=== PATIENT | male | born 1950 | race Caucasian/White ===

== ENCOUNTER 2023-02-15 12:08 | Outpatient (REF) | payer MEDICARE, SELFPAY ==
--- NOTE | 2023-02-15 10:30 | SKI_PTH ---
PATIENT: Ramin Beasley LOC: [facility] U#:[id number] AGE/SX: 72/M ROOM: RE02/15/[address]: Kam Nolen MD : 1950 BED: DIS: 02/15/2023 SPEC #: [id number] RECD: 02/15/23 16:34 STATUS: KAM REQ #: [id number] PRISCILLA: 02/15/23 10:[address]: Kam Nolen DEPT: Surgical Specimen RECD BY: Natalia Boswell ENTERED: 02/15/23 16:34 SP TYPE: REZA GRUBBS DR: Rashaun Renteria Tissues: 1 - SKIN BIOPSY(SHAVE/PUNCH) Procedures: SKIN LEVEL 4 Comments: [id number]
== END 2023-02-15 12:09 | disposition home or self-care (01) ==
LOC: LBN 12:08
PROVIDERS: PCP Nurse Practitioner Family; Visit Provider Otolaryngology
DX: L82.1 Other seborrheic keratosis (principal)
CPT/HCPCS: 88305

== ENCOUNTER 2023-04-02 15:20 | Outpatient (REF) | payer MEDICARE, SELFPAY ==
--- NOTE | 2023-04-02 15:00 | SKI_PTH ---
PATIENT: Ramin Beasley LOC: [facility] U#:[id number] AGE/SX: 72/M ROOM: RE04/02/[address]: Kam Nolen MD : 1950 BED: DIS: 04/02/2023 SPEC #: [id number] RECD: 04/02/23 18:03 STATUS: KAM REДмитрий #: [id number] PRISCILLA: 04/02/23 15:[address]: Kam Nolen DEPT: Surgical Specimen RECD BY: Natalia Boswell ENTERED: 04/02/23 18:04 SP TYPE: REZA GRUBBS DR: Rashaun Renteria Tissues: 1 - SKIN BIOPSY(SHAVE/PUNCH) Procedures: SKIN LEVEL 4 Comments: [id number]
--- OUTSIDE RECORDS SUMMARY | 2023-04-02 15:22 | XMS_ITS ---
Author Name Reyna Collins Address [address] [place] [address] Organization [facility] Address [address] [place] [address] Care Team Providers Care Sales Project Administrator Name Role Phone Reyna Collins Unavailable [phone] PROBLEMS Type Condition ICD9-CM Code HFN14-AX Code Onset Dates Condition Status SNOMED Code Problem Diabetes mellitus with peripheral artery disease E11.59 Active 227651754 Problem Type 2 diabetes mellitus E11.9 Active Problem Encounter for diabetic foot exam E11.9 Active [id number] ALLERGIES Substance Reaction Event Type Date Status environmental Unknown Non Drug Allergy Jun, Act [place] ENCOUNTERS Encounter Location Date Diagnosis [facility] [address] [place] [address] Jun, Toe pain, right M79.674 and Foreign body of toe of right foot, initial encounter S90.454A [facility] [address] Jun, Toe pain, right M79.674 and Foreign body of toe of right foot, initial encounter S90.454A [facility] [address] [place] [address] Apr, Encounter for diabetic foot exam E11.9 ; Type 2 diabetes mellitus E11.9 and Diabetes mellitus with peripheral artery disease E11.59 [facility] [address] [place] [address] Apr, IMMUNIZATIONS No Known Immunizations SOCIAL HISTORY Never Assessed REASON FOR REFERRAL FUNCTIONAL STATUS PLAN OF CARE Activity Details VITAL SIGNS Height 68 in 2020-06-25 Height 68 in 2020-06-21 Height 5ft 8in in 2020-05-10 Weight 209.8 lbs 2020-06-25 Weight 211 lbs 2020-06-21 BMI 31.90 kg/m2 2020-06-25 BMI 32.08 kg/m2 2020-06-21 Temperature 97.0 degrees Fahrenheit Temperature 98.2 degrees Fahrenheit Heart Rate 80 /min 2020-06-25 Heart Rate 84 /min 2020-06-21 Heart Rate 79 /min 2020-05-10 Respiratory Rate 18 /min 2020-06-25 Respiratory Rate 18 /min 2020-06-21 Oximetry 95 % 2020-06-25 Oximetry 92 % 2020-06-21 Oximetry 97 % 2020-05-10 Blood pressure systolic 126 mm Hg Blood pressure diastolic 80 mm Hg 2020-06 MEDICATIONS Medication Instructions Dosage Frequency Start Date End Date Duration Status Aspir-Low Active Accu-Chek Zoya Plus w/Device as directed Acti ve Accu-Chek Zoya Plus - as directed Active Flovent HFA 44 MCG/ACT Inhalation Twice a day 1 puff 12h Not-Takin g Atorvastatin Calcium 10 MG Orally Once a day 1 tablet 24h Active metFORMIN HCl 500 MG Orally twice a day 1 tablet with a meal 12h Active PROCEDURES Procedure Date Ordered Result Body Site REMOVE FOREIGN BODY Jun 21, 2020 FOOT EXAMINATION PERFORMED May 10, 2020 RESULTS No Results REASON FOR VISIT 1 week f/u, Medications reviewed w/pt,med. list is correct, Right foot possible toe ulcer, Evaluation and treatment for DM Foot Care , patient states he is here for Diabetic foot exam with occasionalnumbness in lower extremities-KG, duplicate Insurance Providers Health Insurance Type Health Plan Insurance Address Health Plan Insurance Phone Health Plan Insurance Name Health Plan Coverage Dates Member ID Patient Relationship to Subscriber Patient Address Patient Phone Patient Name Patient Date of Subscriber ID Subscriber Name Subscriber Date of Group No S-SECONDAR Y OTHER [id number] [facility] [address] S-SECONDAR Y OTHER self AMADEO LEZAMA [id number] SELF [employer] GENERAL INS [address] [facility] [id number] S[employer] INS self AMADEO LEZAMA [id number] [employer] [address] [facility] [id number] [facility] self AMADEO LEZAMA [id number] [facility] [address] [facility] [id number] [employer] self AMADEO LEZAMA [id number] [facility]ARE [address] [facility] [id number] MEDICARE self AMADEO LEZAMA [id number] SELF PAY OTHER ANY [facility] [id number] SELF PAY OTHER self AMADEO LEZAMA [id number] SELF PAY NO INSURANCE ANY [facility] [id number] SELF PAY NO INSURANCE self AMADEO LEZAMA [id number]
== END 2023-04-02 15:21 | disposition home or self-care (01) ==
LOC: LBN 15:20
PROVIDERS: PCP Nurse Practitioner Family; Visit Provider Otolaryngology
DX: L82.1 Other seborrheic keratosis (principal)
CPT/HCPCS: 88305